=== PATIENT | female | born 1980 | race Caucasian/White ===

== ENCOUNTER 2016-05-05 09:28 | Emergency (ER) | payer MEDICAID ==
[2016-05-05] MEDS ORDERED: HYDROcod/ACETAM 5/325 MG TABLET PO STA (09:58)
[2016-05-05] MEDS ORDERED: HYDROcod/ACETAM 5/325 MG TABLET ONE (10:04)
[2016-05-05] MEDS ORDERED: KETOROLAC 60 MG/2 ML VIAL IM STA (10:47)
[2016-05-05] MEDS ORDERED: KETOROLAC 60 MG/2 ML VIAL ONE (10:50)
== END 2016-05-05 11:17 | disposition home or self-care (01) ==
DX: J06.9 Acute upper respiratory infection, unspecified (principal); B97.89 Other viral agents as the cause of diseases classified elsewhere; R51 Headache; Z77.22 Contact with and (suspected) exposure to environmental tobacco smoke (acute) (chronic)
CPT/HCPCS: 87275; 87276; 96372; 99283; 99284; A9270

== ENCOUNTER 2018-10-09 14:33 | Emergency (ER) | payer MEDICAID ==
--- NOTE | 2018-10-09 14:50 | ED Physician Documentation ---
History of Present Illness - Stated complaint Stated Complaint: R SIDE RIB PX - Chief complaint Chief Complaint: General - History obtained from History obtained from: Patient - Additonal information Additional information: Patient is a 38-year-old female presenting with several days of right mid axillary rib pain and pain with deep breathing without inciting incident, fall, or trauma. Patient denies other chest pain, productive cough, fever, or chills. Patient also denies any skin changes such as rash, erythema, or bruising to the area of discomfort. Patient has no abdominal complaints including pain, vomiting, urinary changes, or stool changes. Patient is not taking any hormones, nor has she had any recent travel. Patient is otherwise been in her normal state of health without complaint. Review of Systems Constitutional: denies: Fever Cardiac: denies: Chest pain / pressure Respiratory: reports: Dyspnea. 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 - Present Medications Home Medications: Ambulatory Orders Medication Instructions Recorded Confirmed oxyCODONE/ACET 5/325 [Percocet 5 1 - 2 tab PO Q4-6H PRN #10 tablet 05/05/16 mg/325 mg] - Allergies Allergies/Adverse Reactions: Allergies Allergy/AdvReac Type Severity Reaction Status Date / Time ibuprofen [From Motrin] Allergy Respiratory Verified 05/05/16 09:33 - Social History Does the pt smoke?: No Smoking Status: Never smoker PD ED PE NORMAL - Vitals Vital signs reviewed: Yes - General General: Alert and oriented X 3, No acute distress, Well developed/nourished - HEENT HEENT: Atraumatic, Moist mucous membranes - Cardiac Cardiac: RRR, No murmur, Other (Reproducible discomfort when palpating mid axillary ribs on the right side only) - Respiratory Respiratory: No respiratory distress, Clear bilaterally - Abdomen Abdomen: Soft, Non tender - Derm Derm: Normal color, Warm and dry, No rash - Extremities Extremities: No deformity, No tenderness to palpate - Neuro Neuro: Alert and oriented X 3, No motor deficit, No sensory deficit - Psych Psych: Normal mood, Normal affect Results - Vitals Vitals: Vital Signs - 24 hr 10/09/18 10/09/18 14:39 16:37 Temperature 37.0 C Heart Rate 82 80 Respiratory 16 14 Rate Blood Pressure 133/81 H 127/62 O2 Saturation 99 100 Oxygen O2 Source Room air - Labs Labs: Laboratory Tests 10/09/18 10/09/18 10/09/18 15:24 16:27 16:27 WBC 8.1 RBC 4.15 L Hgb 10.2 L Hct 34.8 L MCV 83.9 MCH 24.6 L MCHC 29.3 L RDW 16.4 H Plt Count 427 MPV 9.5 Neut # (Auto) 5.0 Lymph # (Auto) 2.4 Sierra # (Auto) 0.6 Eos # (Auto) 0.0 Baso # (Auto) 0.0 Absolute Nucleated RBC 0.00 Nucleated RBC % 0.0 PT 11.4 INR 1.0 APTT 25.9 D-Dimer > 1050.0 H Sodium Potassium Chloride Carbon Dioxide Anion Gap BUN Creatinine Estimated GFR (MDRD) Glucose Calcium Total Bilirubin AST ALT Alkaline Phosphatase Troponin I Total Protein Albumin Globulin Albumin/Globulin Ratio Lipase Serum HCG, Qual 10/09/18 10/09/18 10/09/18 16:27 16:27 16:27 WBC RBC Hgb Hct MCV MCH MCHC RDW Plt Count MPV Neut # (Auto) Lymph # (Auto) Sierra # (Auto) Eos # (Auto) Baso # (Auto) Absolute Nucleated RBC Nucleated RBC % PT INR APTT D-Dimer Sodium 137 Potassium 4.3 Chloride 106 Carbon Dioxide 21 Anion Gap 10.0 BUN 18 Creatinine 0.6 Estimated GFR (MDRD) 112 Glucose 90 Calcium 8.7 Total Bilirubin 0.7 AST 30 ALT 27 Alkaline Phosphatase 60 Troponin I < 0.04 Total Protein 7.2 Albumin 3.6 Globulin 3.6 Albumin/Globulin Ratio 1.0 Lipase 26 Serum HCG, Qual NEGATIVE PD MEDICAL DECISION MAKING - ED course Complexity details: reviewed results, re-evaluated patient, considered differential, d/w patient ED course: Most likely patient is experiencing musculoskeletal strain, but also considered rib contusion or fracture, although this would be highly unlikely given lack of trauma. Patient does describe pleuritic chest pain also raising concern for PE. Patient denies symptoms that raise high suspicion for ACS, IN, unstable angina, pneumonia, dissection, aneurysm, but considered. Will obtain chest x-ray to further evaluate. Also obtained d-dimer. D-dimer returned elevated. Chest x- ray also returned with questionable abnormalities on the ninth rib. Patient amenable to further evaluation with screening lab work, as well as CTA chest. Screening lab work including troponin returned relatively unremarkable. CTA chest did not find other acute pathology including PE, but incidental findings and report were shared with patient. At this time, feel that she is safe to discharge home with supportive cares, appropriate follow-up, strict return precautions. Patient voiced understanding and is comfortable with discharge plan. Departure - Departure Disposition: 01 Home, Self Care Clinical Impression: Chest wall pain Instructions: ED Strain Chest Wall Follow-Up: Amelia Hanson NP [Primary Care Provider] - Within 3 Days Comments: Please continue any home medications as previously instructed. Recommend heat, stretching, massage, and ibuprofen/Tylenol for chest wall or muscle pain. Please follow-up with primary care physician in next 2 to 3 days and return to ED sooner if experience worsening symptoms or other concerns.
--- NOTE | 2018-10-09 15:46 | XRAY Report ---
Reason: mid axillary rib pain, no injury Procedure Date: 10/09/2018 Accession Number: [id number] / [id number] Procedure: XR - Ribs w/PA Chest RT CPT Code: FULL RESULT: EXAM: RIGHT RIB RADIOGRAPHY EXAM DATE: 10/09/2018 03:26 PM. CLINICAL HISTORY: Mid axillary rib pain, no injury. COMPARISON: XR CHEST PA AND LAT 06/25/2010 10:48 PM. TECHNIQUE: 1 view of the chest and 2 views of the ribs. FINDINGS: Bones: While no displaced fracture is detected, there is apparent irregularity about the inferior margin of the posterior right ninth rib, best seen on the LPO view but questionably also present on the RPO view. Lungs: No focal opacities. No pneumothorax. No pleural effusions. Mediastinum: Heart and mediastinal contours are unremarkable. Other: None. IMPRESSION: Apparent irregularity about the inferior margin of the posterior right ninth rib. Recommendation: Chest CT. [facility]
[2018-10-09 16:37] LABS: BASOPHILS % (AUTO) 0.4 %; EOSINOPHILS % (AUTO) 0.2 %; HGB - HEMOGLOBIN 10.2 g/dL (12.0-16.0); LYMPHOCYTES # (AUTO) 2.4 10^3/uL (1.5-3.5); LYMPHOCYTES % (AUTO) 30.2 %; MEAN CORPUSCULAR HEMOGLOBIN 24.6 pg (27.0-31.0); MEAN CORPUSCULAR HGB CONC 29.3 g/dL (32.0-36.0); MEAN CORPUSCULAR VOLUME 83.9 fL (81.0-99.0); MEAN PLATELET VOLUME 9.5 fL (7.9-10.8); MONOCYTES # (AUTO) 0.6 10^3/uL (0.0-1.0); MONOCYTES % (AUTO) 7.5 %; NEUTROPHILS % (AUTO) 61.5 %; PLT - PLATELET COUNT 427 10^3/uL (130-450); RED BLOOD COUNT 4.15 10^6/uL (4.20-5.40); RED CELL DISTRIBUTION WIDTH 16.4 % (12.0-15.0); WHITE BLOOD COUNT 8.1 x10^3/uL (4.8-10.8)
[2018-10-09 16:38] VITALS: BP 127/62
[2018-10-09] MEDS ORDERED: IOVERSOL 320 100 ML VIAL IVP ONE ×2 (16:50→18:52)
[2018-10-09 16:57] LABS: ALBUMIN 3.6 g/dL (3.2-5.5); BILIRUBIN,TOTAL 0.7 mg/dL (0.2-1.0); CALCIUM 8.7 mg/dL (8.5-10.3); CREATININE 0.6 mg/dL (0.4-1.0); TOTAL PROTEIN 7.2 g/dL (6.7-8.2)
[2018-10-09 17:03] LABS: PT - PROTHROMBIN TIME 11.4 secs (9.9-12.6)
[2018-10-09 17:07] LABS: HCG,QUALITATIVE BLOOD NEGATIVE
[2018-10-09 17:11] LABS: PARTIAL THROMBOPLASTIN TIME 25.9 secs (24.9-33.3)
--- NOTE | 2018-10-09 17:21 | CT Report ---
Reason: elevated ddimer, right rib pain Procedure Date: 10/09/2018 Accession Number: [id number] / [id number] Procedure: CT - ANGIO CHEST W/WO CPT Code: FULL RESULT: EXAM: CT ANGIOGRAM CHEST EXAM DATE: 10/09/2018 04:52 PM. CLINICAL HISTORY: Elevated ddimer, right rib pain. COMPARISON: None. TECHNIQUE: Routine helical imaging was performed through the chest in the pulmonary arterial phase. IV Contrast: 80 cc Optiray 320. Reconstructions: Coronal 3-D MIP reconstructions.Sagittal and coronal. In accordance with CT protocol optimization, one or more of the following dose reduction techniques were utilized for this exam: automated exposure control, adjustment of mA and/or KV based on patient size, or use of iterative reconstructive technique. FINDINGS: Pulmonary Arteries: Diagnostic quality: Adequate through the segmental arteries. No evidence for acute or chronic pulmonary emboli. Lungs/Pleura: No suspicious nodularity, mass, or consolidation. No pleural effusions. No endobronchial or endotracheal lesion. Mediastinum: 1.9 cm partially calcified nodule in the left thyroid lobe. Thoracic aorta and main pulmonary artery are normal caliber. Heart size is within normal limits. No pericardial effusion. Lymph Nodes: No mediastinal, hilar, or axillary adenopathy. Bones: No suspicious osseous lesions. Visualized chest wall is grossly unremarkable. Partially Imaged Upper Abdomen: No acute abnormalities. IMPRESSION: No acute or chronic pulmonary embolus. 1.9 cm left thyroid lobe nodule. This could be further evaluated with nonemergent ultrasound. [facility]
== END 2018-10-09 17:33 | disposition home or self-care (01) ==
LOC: ED 14:33
DX: R07.89 Other chest pain (principal); R79.89 Other specified abnormal findings of blood chemistry; E04.1 Nontoxic single thyroid nodule
CPT/HCPCS: 36415; 71101; 71275; 80053; 83690; 84484; 84703; 85025; 85379; 85610; 85730; 99283; Q9967

== ENCOUNTER 2018-11-28 12:30 | Emergency (ER) | payer MEDICAID ==
[2018-11-28 12:41] VITALS: BP 154/78
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
== END 2018-11-28 13:01 | disposition home or self-care (01) ==
LOC: ED 12:30
DX: S60.470A Other superficial bite of right index finger, initial encounter (principal); W54.0XXA Bitten by dog, initial encounter; Y93.89 Activity, other specified; Y92.481 Parking lot as the place of occurrence of the external cause
CPT/HCPCS: 99282; 99284

== ENCOUNTER 2019-03-31 22:12 | Emergency (ER) | payer OTHER, MEDICAID ==
[2019-03-31 22:24] VITALS: BP 138/69
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
== END 2019-03-31 22:57 | disposition home or self-care (01) ==
LOC: ED 22:12
DX: S97.81XA Crushing injury of right foot, initial encounter (principal); V03.00XA Pedestrian on foot injured in collision with car, pick-up truck or van in nontraffic accident, initial encounter; Y92.524 Gas station as the place of occurrence of the external cause; Y99.0 Civilian activity done for income or pay
CPT/HCPCS: 99282; 99283

== ENCOUNTER 2019-04-07 22:34 | Emergency (ER) | payer OTHER, MEDICAID ==
[2019-04-07 22:44] VITALS: BP 144/86
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
== END 2019-04-07 23:46 | disposition home or self-care (01) ==
LOC: ED 22:34
DX: S92.315A Nondisplaced fracture of first metatarsal bone, left foot, initial encounter for closed fracture (principal); S97.82XA Crushing injury of left foot, initial encounter; V03.00XA Pedestrian on foot injured in collision with car, pick-up truck or van in nontraffic accident, initial encounter
CPT/HCPCS: 99282; 99283

== ENCOUNTER 2020-03-29 18:03 | Emergency (ER) | payer MEDICAID, OTHER ==
[2020-03-29] MEDS ORDERED: METOCLOPRAMIDE 10 MG/2 ML VIAL IVP STA (18:34)
--- NOTE | 2020-03-29 18:36 | ED Physician Documentation ---
PD HPI FOCAL NEURO - Stated complaint Stated Complaint: RIGHT SIDE NECK PX, BLURRY VISION, RIGHT SIDE HEAD - Chief complaint Chief Complaint: Neuro - History obtained from History obtained from: Patient - Additional information Additional information: 39-year-old woman with remote history of methamphetamine use, not recent. Otherwise no history of neurologic disease although she does get occasional migraines which are more typical. 2 days ago she felt like bubbles were going up the side of her neck toward the mastoid and then they popped. Since then she has had an occipital headache, blurry vision in the right eye, the right forehead feels numb and the left forehead is burning. 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 - Present Medications Home Medications: Ambulatory Orders Medication Instructions Recorded Confirmed Fluoxetine HCl [Prozac] 40 mg PO DAILY 03/31/19 03/29/20 busPIRone [Buspar] 5 mg PO TID PRN 03/31/19 03/29/20 Levothyroxine Sodium [Synthroid] 1 tab PO DAILY 03/29/20 03/29/20 - Allergies Allergies/Adverse Reactions: Allergies Allergy/AdvReac Type Severity Reaction Status Date / Time ibuprofen [From Motrin] Allergy Respiratory Verified 03/29/20 18:16 - Social History Does the pt smoke?: No Smoking Status: Never smoker Does the pt drink ETOH?: No Does the pt have substance abuse?: No - Immunizations Immunizations are current?: Yes - POLST Patient has POLST: No PD ED PE NORMAL - Vitals Vital signs reviewed: Yes - General General: Alert and oriented X 3, No acute distress - HEENT HEENT: PERRL, EOMI - Neck Neck: Supple, no meningeal sign, No bony TTP - Cardiac Cardiac: RRR, No murmur - Respiratory Respiratory: No respiratory distress, Clear bilaterally - Abdomen Abdomen: Soft, Non tender - Back Back: No CVA TTP, No spinal TTP - Derm Derm: Normal color, Warm and dry - Extremities Extremities: No edema, No calf tenderness / cord - Neuro Neuro: Alert and oriented X 3, No motor deficit, No sensory deficit, Normal speech NIHSS - Time Time: 18:28 - Level of Consciousness Level of consciousness: (0) Alert, Keenly responsive LOC Questions: (0) Answers both Q's correct LOC Commands: (0) Performs both correctly - Gaze Best Gaze: (0) Normal - Visual Visual: (0) No loss - Facial Palsy Facial Palsy: (0) Normal, symmetrical movement - Motor Arms (both separate) Motor Arm (right): (0) No drift Motor Arm (left): (0) No drift - Motor Legs (both separate) Motor Leg (right): (0) No drift Motor Leg (left): (0) No drift - Limb Ataxia Limb Ataxia: (0) Absent - Sensory Sensory: (0) Normal - Best Language Best Language: (0) No aphasia - Dysarthria Dysarthria: (0) Normal - Extinction and Inattention (formally neg Extinction and inattention: (0) No abnormality - Total Score/Results Total Score/Result: 0 Results - Vitals Vitals: Vital Signs - 24 hr 03/29/20 03/29/20 03/29/20 18:11 18:49 19:00 Temperature 36.2 C L Heart Rate 82 87 88 Respiratory 18 16 14 Rate Blood Pressure 127/82 H 138/91 H 131/83 H O2 Saturation 99 100 98 Oxygen O2 Source Room air - EKG (time done) 1836 Rate: Rate (enter#) (69) Rhythm: NSR [place]: Normal Intervals: Normal OR QRS: Normal Ischemia: Normal ST segments Computer interpretation: Agree with computer - Labs Labs: Laboratory Tests 03/29/20 03/29/20 03/29/20 17:40 17:40 18:45 WBC 7.3 RBC 4.71 Hgb 12.1 Hct 38.6 MCV 82.0 MCH 25.7 L MCHC 31.3 L RDW 16.1 H Plt Count 478 H MPV 10.1 Neut # (Auto) 4.6 Lymph # (Auto) 2.1 [place] # (Auto) 0.6 Eos # (Auto) 0.0 Baso # (Auto) 0.0 Absolute Nucleated RBC 0.00 Nucleated RBC % 0.0 Sodium 138 Potassium 4.3 Chloride 104 Carbon Dioxide 25 Anion Gap 9.0 BUN 20 Creatinine 0.7 Estimated GFR (MDRD) 93 Glucose 106 H Calcium 9.4 Total Bilirubin 0.6 AST 25 ALT 29 Alkaline Phosphatase 59 Total Protein 7.4 Albumin 4.0 Globulin 3.4 Albumin/Globulin Ratio 1.2 Lipase 27 Urine Color YELLOW Urine Clarity CLEAR Urine pH 7.0 Ur Specific Claude 1.025 Urine Protein NEGATIVE Urine Glucose (UA) NEGATIVE Urine Ketones NEGATIVE Urine Occult Blood TRACE-INTA Urine Nitrite NEGATIVE Urine Bilirubin NEGATIVE Urine Urobilinogen 0.2 (NORMAL) Ur Leukocyte Esterase NEGATIVE Ur Microscopic Review NOT INDICATED Urine Culture Comments NOT INDICATED Urine HCG, Qual NEGATIVE Urine Opiates Screen NEGATIVE Ur Oxycodone Screen NEGATIVE Urine Methadone Screen NEGATIVE Ur Propoxyphene Screen NEGATIVE Ur Barbiturates Screen NEGATIVE Ur Tricyclics Screen NEGATIVE Ur Phencyclidine Scrn NEGATIVE Ur Amphetamine Screen NEGATIVE U Methamphetamines Scrn NEGATIVE U Benzodiazepines Scrn NEGATIVE Urine Cocaine Screen NEGATIVE U Cannabinoids Screen NEGATIVE - Rads (name of study) CTA Head and neck Radiology: EMP read contemporaneously (NAD) PD MEDICAL DECISION MAKING - ED course ED course: 39-year-old woman presents with odd symptoms of bubbling in her right posterior neck culminating in a posterior headache, blurry vision in 1 eye, numbness on one side of the forehead and burning on the other one possibility would be vertebral dissection, another would be a very odd stroke, finally and frankly most likely my mind would be migraine. During her ED stay she received some IV Reglan which resolved her neurologic symptoms. Subsequently had CT angiography of the neck which ruled out dissection or vascular issue. Departure - Departure Disposition: 01 Home, Self Care Clinical Impression: Stroke-like symptoms Migraine Qualifiers: Migraine type: with aura Status migrainosus presence: without status sandhya rainosus Intractability: not intractable Qualified Code(s): G43.109 - Migraine with aura, not intractable, without status migrainosus Condition: Good Record reviewed to determine appropriate education?: Yes Instructions: ED Headache Migraine Comments: You were seen today with some strokelike symptoms although it was not typical for stroke since it was on both sides. The fact that you got relief with's migraine medication and your pictures were unremarkable suggest that it was actually an atypical migraine. Return if worsening. Follow-up with your primary care physician.
[2020-03-29] MEDS ORDERED: IOVERSOL 320 100 ML VIAL IVP ONE ×2 (18:46→19:43)
[2020-03-29 18:57] LABS: BILIRUBIN,URINE NEGATIVE (NEGATIVE); GLUCOSE, URINE (UA) NEGATIVE (NEGATIVE); KETONES,URINE (UA) NEGATIVE (NEGATIVE); LEUKOCYTE ESTERASE, URINE NEGATIVE (NEGATIVE); MUDS CUTOFF CONCENTRATIONS CUTOFF CONC BELOW:; NITRITE,URINE NEGATIVE (NEGATIVE); OCCULT BLOOD,URINE TRACE-INTA (NEGATIVE); PROTEIN,URINE NEGATIVE (NEGATIVE); UROBILINOGEN,URINE 0.2 (NORMAL) E.U./dL (NORMAL)
[2020-03-29 19:01] LABS: CLARITY,URINE CLEAR (CLEAR); HCG UR QUAL NEGATIVE
[2020-03-29 19:02] LABS: BASOPHILS % (AUTO) 0.4 %; EOSINOPHILS % (AUTO) 0.3 %; HGB - HEMOGLOBIN 12.1 g/dL (12.0-16.0); LYMPHOCYTES # (AUTO) 2.1 10^3/uL (1.5-3.5); LYMPHOCYTES % (AUTO) 28.2 %; MEAN CORPUSCULAR HEMOGLOBIN 25.7 pg (27.0-31.0); MEAN CORPUSCULAR HGB CONC 31.3 g/dL (32.0-36.0); MEAN PLATELET VOLUME 10.1 fL (7.9-10.8); MONOCYTES # (AUTO) 0.6 10^3/uL (0.0-1.0); MONOCYTES % (AUTO) 7.9 %; NEUTROPHILS # (AUTO) 4.6 10^3/uL (1.5-6.6); NEUTROPHILS % (AUTO) 63.1 %; PLT - PLATELET COUNT 478 10^3/uL (130-450); RED BLOOD COUNT 4.71 10^6/uL (4.20-5.40); RED CELL DISTRIBUTION WIDTH 16.1 % (12.0-15.0); WHITE BLOOD COUNT 7.3 x10^3/uL (4.8-10.8)
[2020-03-29 19:09] LABS: AMPHETAMINE SCREEN,URINE NEGATIVE (NEGATIVE); BENZODIAZEPINES SCREEN, URINE NEGATIVE (NEGATIVE); COCAINE SCREEN URINE NEGATIVE (NEGATIVE); METHADONE SCREEN, URINE NEGATIVE (NEGATIVE); METHAMPHETAMINES SCREEN, URINE NEGATIVE (NEGATIVE); OPIATE SCREEN, URINE NEGATIVE (NEGATIVE); OXYCODONE SCREEN, URINE NEGATIVE (NEGATIVE); PROPOXYPHENE SCREEN, URINE NEGATIVE (NEGATIVE); TRICYCLIC ANTIDEPRESSANT,URINE NEGATIVE (NEGATIVE)
[2020-03-29 19:15] LABS: ALBUMIN/GLOBULIN RATIO 1.2 (1.0-2.2); BILIRUBIN,TOTAL 0.6 mg/dL (0.2-1.0); CALCIUM 9.4 mg/dL (8.5-10.3); CREATININE 0.7 mg/dL (0.4-1.0); TOTAL PROTEIN 7.4 g/dL (6.7-8.2)
--- NOTE | 2020-03-29 20:10 | CT Report ---
PROCEDURE: ANGIO HEAD W/WO INDICATIONS: R neck pain, blurry vision, occipital HARRIS CONTRAST: IV CONTRAST: Optiray 320 ml: 80 PO CONTRAST: *NO PO CONTRAST TECHNIQUE: Precontrast 4.5 mm thick angled axial sections acquired from the foramen magnum to the vertex. Afte r the administration of intravenous contrast, 1 mm thick sections acquired through the [place] of [place] is. Postcontrast 4.5 mm thick sections then re-acquired from the foramen magnum to the vertex. 3-di mensional kjzfces-jzcscfpsp-zbjbylvnlc (MIP) and/or volume rendering reformats were acquired of the c entral intracranial vasculature. For radiation dose reduction, the following was used: automated ex posure control, adjustment of mA and/or kV according to patient size. COMPARISON: None available FINDINGS: Image quality: Excellent. Anterior circulation: Intracranial internal carotid arteries are normal in size and flow. The flow within the paired anterior cerebral arteries is normal and symmetric. The flow within the middle cer ebral arteries is normal and symmetric. The anterior communicating artery is seen. No aneurysms are seen. Posterior circulation: Visualized portions of the vertebral arteries demonstrate normal caliber, and join to form a normal appearing basilar artery. Flow within the posterior cerebral arteries is norm al and symmetric. No aneurysms are seen. CSF spaces: Ventricles are normal in size and shape. Basal cisterns are patent. No extra-axial flu id collections. Brain: No midline shift. No intracranial bleeds or masses. Ramirez-white matter interface appears int act. Skull and face: Calvarium and facial bones appear intact, without suspicious lesions. Sinuses: Visualized sinuses and mastoids are clear. IMPRESSION: 1. No CT evidence of acute intracranial process. 2. Normal CT angiogram of the head without evidence of vascular stenosis, occlusion, or aneurysm. Reviewed by: Shanice Pan MD on 03/29/2020 8:08 PM PST Approved by: Shanice Pan MD on 03/29/2020 8:08 PM PST Station ID: [id number]
--- NOTE | 2020-03-29 20:33 | CT Report ---
PROCEDURE: ANGIO NECK W INDICATIONS: R neck pain, blurry vision, occipital HARRIS CONTRAST: IV CONTRAST: Optiray 320 ml: 80 PO CONTRAST: *NO PO CONTRAST TECHNIQUE: After the administration of intravenous contrast, 1.5 mm axial sections acquired from the aortic arch to the [place] of [place]. Coronal 3-D maximum intensity projection (MIP) and/or volume rendering ref ormats were then performed. For radiation dose reduction, the following was used: automated exposur e control, adjustment of mA and/or kV according to patient size. COMPARISON: None. FINDINGS: Image quality: Excellent. Carotid system: The great vessels demonstrate a conventional anatomy as they arise from the aortic a rch. The origins of the common carotid arteries appear patent. The common carotid arteries demonstr ate normal calibers and courses. The bifurcation regions appear normal bilaterally. The internal ca rotid arteries demonstrate normal caliber and course. Posterior circulation: The origins of the vertebral arteries appear patent. The more superior porti ons of the vertebral arteries demonstrate normal course and caliber. They join to form a normal appe aring basilar artery. Soft tissues: Visualized neck soft tissues demonstrate no suspicious abnormalities. The thyroid gla nd is normal in size. Bones: No suspicious bony lesions. Visualized cervical spine appears normally aligned. IMPRESSION: No evidence of carotid or vertebral stenosis, occlusion or dissection. The estimate of stenosis included in the report of the imaging study was calculated using the NASCET method Reviewed by: Shanice Pan MD on 03/29/2020 8:32 PM PST Approved by: Shanice Pan MD on 03/29/2020 8:32 PM PST Station ID: [id number]
[2020-03-29 20:50] VITALS: BP 148/90
== END 2020-03-29 20:53 | disposition home or self-care (01) ==
LOC: ED 18:03
DX: G43.109 Migraine with aura, not intractable, without status migrainosus (principal); H53.8 Other visual disturbances; R20.0 Anesthesia of skin; R20.2 Paresthesia of skin
CPT/HCPCS: 36415; 70496; 70498; 80053; 80306; 81003; 81025; 83690; 85025; 93005; 96374; 99284; J2765; Q9967; 81001; 87086

== ENCOUNTER 2020-11-05 19:37 | Emergency (ER) | payer MEDICAID ==
[2020-11-05] MEDS ORDERED: TETANUS/DIPHTHERIA/PERTUSSIS 0.5 ML SYRINGE IM ONE (21:03)
[2020-11-05] MEDS ORDERED: AMOX/CLAV 875 MG/125 MG TABLET PO STA (21:03)
--- NOTE | 2020-11-05 21:05 | ED Physician Documentation ---
History of Present Illness - Stated complaint Stated Complaint: DOG BITE - Chief complaint Chief Complaint: Laceration - History obtained from History obtained from: Patient - History of Present Illness Timing: Prior to arrival, Today - Additonal information Additional information: 40-year-old female was walking her dog in [place] when she noted a stray dog she went to bend over to pet the dog and it jumped up and bit her in the face and ran away. She states the dog was a pit bull that appeared to have recently littered pops. The patient does not know the animal the belting and webbing inspector was not present. Animal control has been notified. The patient is uncertain about her last tetanus. She has been immunized against Covid. 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 - Present Medications Home Medications: Ambulatory Orders Medication Instructions Recorded Confirmed Fluoxetine HCl [Prozac] 40 mg PO DAILY 03/31/19 03/29/20 busPIRone [Buspar] 5 mg PO TID PRN 03/31/19 03/29/20 Levothyroxine Sodium [Synthroid] 1 tab PO DAILY 03/29/20 03/29/20 Amox/Clav 875/125 [Augmentin] 1 each PO Q12H #10 tablet 11/05/20 Fluconazole [Diflucan] 1 tablet PO ONCE 1 Days #1 tablet 11/05/20 - Allergies Allergies/Adverse Reactions: Allergies Allergy/AdvReac Type Severity Reaction Status Date / Time ibuprofen [From Motrin] Allergy Respiratory Verified 11/05/20 19:51 - Social History Does the pt smoke?: No Smoking Status: Never smoker Does the pt drink ETOH?: No Does the pt have substance abuse?: No - Immunizations Immunizations are current?: Yes - POLST Patient has POLST: No PD ED PE NORMAL - Vitals Vital signs reviewed: Yes (hypertensive ) - General General: Alert and oriented X 3, No acute distress, Well developed/nourished - HEENT HEENT: PERRL, EOMI, Other (There are superficial lacerations not penetrating the dermis to the right cheek 1 cm to the right nares 1 cm into the left nares more superficial half centimeter.) - Neck Neck: Supple, no meningeal sign, No bony TTP - Respiratory Respiratory: No respiratory distress - Derm Derm: Normal color, Warm and dry, No rash - Extremities Extremities: No deformity, No edema - Neuro Neuro: Alert and oriented X 3, clamp jig assembler 2-12 intact, No motor deficit, No sensory deficit, Normal speech Eye Opening: Spontaneous Motor: Obeys Commands Verbal: Oriented GCS Score: 15 - Psych Psych: Normal mood, Normal affect Results - Vitals Vitals: Vital Signs - 24 hr 11/05/20 19:48 Temperature 36.9 C Heart Rate 75 Respiratory 16 Rate Blood Pressure 156/86 H O2 Saturation 100 Oxygen O2 Source Room air PD MEDICAL DECISION MAKING - ED course Complexity details: considered differential, d/w patient ED course: 40-year-old female with dog bite to the face from a stray dog has superficial lacerations which are cleansed bacitracin is applied and patient is given a tetanus booster. We will place on antibiotic prophylaxis and she is requesting Diflucan as well. I have given the patient instructions on what to expect from a small amount of redness and serous drainage by day 3 versus infection with surrounding erythema. She will return as needed.She will be responsible for follow-up with animal control. Departure - Departure Disposition: 01 Home, Self Care Clinical Impression: Superficial laceration of face Dog bite of ala nasi Qualifiers: Encounter type: initial encounter Qualified Code(s): S01.25XA - Open bite of nose, initial encounter; W54.0XXA - Bitten by dog, initial encounter Condition: Stable Instructions: ED Laceration Small Superf No Sutr, ED Bite Dog Follow-Up: Amelia Hanson NP [Primary Care Provider] - Prescriptions: Amox/Clav 875/125 [Augmentin] 1 each PO Q12H #10 tablet Fluconazole [Diflucan] 1 tablet PO ONCE 1 Days #1 tablet
[2020-11-05] MEDS ORDERED: BACITRACIN ZINC OINT 1 PACKET TOP STA (21:13)
[2020-11-05 21:20] VITALS: BP 150/78
== END 2020-11-05 21:20 | disposition home or self-care (01) ==
LOC: ED 19:37
DX: S01.25XA Open bite of nose, initial encounter (principal); S00.87XA Other superficial bite of other part of head, initial encounter; W54.0XXA Bitten by dog, initial encounter; Y93.K1 Activity, walking an animal; Y92.89 Other specified places as the place of occurrence of the external cause; Z23 Encounter for immunization
CPT/HCPCS: 90471; 90715; 99283; A9270

== ENCOUNTER 2020-11-28 22:50 | Emergency (ER) | payer MEDICAID ==
--- NOTE | 2020-11-29 00:17 | ED Physician Documentation ---
PD HPI CHEST PAIN - Stated complaint Stated Complaint: R SIDE PX - Chief complaint Chief Complaint: General - History obtained from History obtained from: Patient - History of Present Illness Timing - onset: How many days ago (3) Timing - details: Gradual onset, Waxing and waning Pain level now: 6 Quality: Pain Location: Right chest, Other (right flank) Radiation: Other ( no radiation) Improved by: Rest Worsened by: Inspiration, Movement Associated symptoms: No: Shortness of air, Vomiting Similar symptoms before: Has not had sx before Review of Systems Constitutional: reports: Reviewed and negative Cardiac: reports: Chest pain / pressure. 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, 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 - Present Medications Home Medications: Ambulatory Orders Medication Instructions Recorded Confirmed Fluoxetine HCl [Prozac] 40 mg PO DAILY 03/31/19 03/29/20 busPIRone [Buspar] 5 mg PO TID PRN 03/31/19 03/29/20 Levothyroxine Sodium [Synthroid] 1 tab PO DAILY 03/29/20 03/29/20 Amox/Clav 875/125 [Augmentin] 1 each PO Q12H #10 tablet 11/05/20 Fluconazole [Diflucan] 1 tablet PO ONCE 1 Days #1 tablet 11/05/20 HYDROcod/ACETAM 5/325 [Ennice 5/325] 1 - 2 tablet PO Q6H PRN #14 tablet 11/29/20 - Allergies Allergies/Adverse Reactions: Allergies Allergy/AdvReac Type Severity Reaction Status Date / Time ibuprofen [From Motrin] Allergy Respiratory Verified 11/28/20 23:00 - Social History Does the pt smoke?: No Smoking Status: Never smoker Does the pt drink ETOH?: No Does the pt have substance abuse?: No - Immunizations Immunizations are current?: Yes - POLST Patient has POLST: No PD ED PE NORMAL - Vitals Vital signs reviewed: Yes - General General: Alert and oriented X 3, No acute distress, Well developed/nourished - HEENT HEENT: Moist mucous membranes - Neck Neck: Supple, no meningeal sign - Cardiac Cardiac: RRR, No murmur, No gallop, No rub - Respiratory Respiratory: No respiratory distress, Clear bilaterally - Abdomen Abdomen: Normal bowel sounds, Soft, Non tender - Derm Derm: Normal color, Warm and dry - Extremities Extremities: No edema Results - Vitals Vitals: Oxygen O2 Source Room air - Rads (name of study) chest xray Radiology: Prelim report reviewed, See rad report PD MEDICAL DECISION MAKING - ED course Complexity details: reviewed results, re-evaluated patient, considered differential, d/w patient ED course: chest wall pain distinctly worse with movement, palpation. Emergent testing not indicated at this time, encouraged to follow up with primary care provider, return if worse. I am prescribing a short course of short-acting opioid pain medication for this patient. I have reviewed the patients MEDIA CLERK and no concerning findings were noted. I have discussed that the opioids are for short term therapy only, and will not be refilled from the ED. Departure - Departure Disposition: Home, Self Care Clinical Impression: Chest wall pain Condition: Good Instructions: ED Strain Chest Wall Follow-Up: Amelia Hanson NP [Primary Care Provider] - Prescriptions: HYDROcod/ACETAM 5/325 [Ennice 5/325] 1 - 2 tablet PO Q6H PRN #14 tablet PRN Reason: Pain Comments: I am prescribing a short course of narcotic pain medication for you. These are potentially dangerous and addictive medications that should be used carefully. These medications may constipate you. Take an iqie-yhk-dmmttxm stool softener (docusate) twice daily with plenty of water while taking these medications. If you go 24 hours without a bowel movement, take qncc-alw-ouqdrqu miralax, per package instructions. Do not drink or drive while taking these medications. If you received narcotic or sedating medications while in the emergency department, do not drive for 24 hours. Store this medication in a safe, secure place and out of reach of children. It is a violation of federal law to give or sell this medication to another person or to use in a manner other than prescribed. The ED will not refill narcotic prescriptions, including prescriptions lost or stolen. To dispose of unwanted medications: 1. [facility] at [address] in [place] has a medication drop box. They accept prescription medications (in pill form) Sunday through Sunday 9:00 a.m. to 5:00 p.m. 2. The [facility] accepts prescription medications (in pill form only) for disposal year round. Call for more information. 3. Contact the [facility] for the next [facility] sponsored prescription drug collection event. , [phone], or [phone]; Forms: Activity restrictions Discharge Date/Time: 11/29/20 01:55
[2020-11-29] MEDS ORDERED: KETOROLAC 60 MG/2 ML VIAL IM STA (00:29)
--- NOTE | 2020-11-29 01:19 | XRAY Report ---
PROCEDURE: Chest 2 View X-Ray INDICATIONS: pleuritic right chest pain TECHNIQUE: 2 view(s) of the chest. COMPARISON: CTA chest 6 is .. FINDINGS: Surgical changes and devices: None. Lungs and pleura: No pleural effusions or pneumothorax. Lungs are clear. Mediastinum: Mediastinal contours are normal. Heart size is normal. Bones and chest wall: No suspicious bony abnormalities. Soft tissues appear unremarkable. IMPRESSION: No acute cardiopulmonary disease process. Reviewed by: Milagros Her MD, PhD on 11/29/2020 1:18 AM PDT Approved by: Milagros Her MD, PhD on 11/29/2020 1:18 AM PDT Station ID: [id number]
[2020-11-29 01:23] VITALS: BP 125/67
[2020-11-29] MEDS ORDERED: HYDROcod/ACETAM 5/325 MG TABLET PO STA (01:44)
== END 2020-11-29 01:55 | disposition home or self-care (01) ==
LOC: ED 22:50
DX: R07.89 Other chest pain (principal)
CPT/HCPCS: 71046; 96372; 99283; 99284; A9270

== ENCOUNTER 2023-05-13 16:24 | Emergency (ER) | payer MEDICAID ==
[2023-05-13] MEDS ORDERED: KETOROLAC 60 MG/2 ML VIAL IM STA (17:35)
--- NOTE | 2023-05-13 17:35 | ED Physician Documentation ---
PD HPI ABD PAIN - Stated complaint Stated Complaint: ABD PX - Chief complaint Chief Complaint: Abd Pain - History obtained from History obtained from: Patient - Additional information Additional information: 42-year-old woman fell bilateral flank pain today. This is consistent for her with prior episodes of "scarred kidneys. She is not feverish with it. No urinary complaints. No possibility of . She requests Toradol specifically for this. 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: section, 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 - Present Medications Home Medications: Ambulatory Orders Medication Instructions Recorded Confirmed Fluoxetine HCl [Prozac] 40 mg PO DAILY 03/31/19 03/29/20 busPIRone [Buspar] 5 mg PO TID PRN 03/31/19 03/29/20 Levothyroxine Sodium [Synthroid] 1 tab PO DAILY 03/29/20 03/29/20 Amox/Clav 875/125 [Augmentin] 1 each PO Q12H #10 tablet 11/05/20 Fluconazole [Diflucan] 1 tablet PO ONCE 1 Days #1 tablet 11/05/20 HYDROcod/ACETAM 5/325 [Printer 5/325] 1 - 2 tablet PO Q6H PRN #14 tablet 11/29/20 Ciprofloxacin HCl [Cipro] 500 mg PO BID #20 tablet 05/13/23 Ferrous Sulfate 325 mg PO DAILY #60 05/13/23 - Allergies Allergies/Adverse Reactions: Allergies Allergy/AdvReac Type Severity Reaction Status Date / Time ibuprofen [From Motrin] Allergy Respiratory Verified 05/13/23 17:23 - Social History Does the pt smoke?: No Smoking Status: Never smoker Does the pt drink ETOH?: No Does the pt have substance abuse?: No - Immunizations Immunizations are current?: Yes - POLST Patient has POLST: No PD ED PE NORMAL - Vitals Vital signs reviewed: Yes - General General: Alert and oriented X 3, No acute distress - Abdomen Abdomen: Normal bowel sounds, Soft, Non tender - Back Back: Other (Mild bilateral flank tenderness) - Derm Derm: Normal color, Warm and dry - Neuro Neuro: Alert and oriented X 3 Results - Vitals Vitals: Vital Signs - 24 hr 05/13/23 16:26 Temperature 37.7 C Heart Rate 126 H Respiratory 18 Rate Blood Pressure 168/74 H O2 Saturation 98 Oxygen O2 Source Room air - Labs Labs: Laboratory Tests 05/13/23 05/13/23 05/13/23 17:23 17:41 17:41 WBC 17.5 H RBC 4.06 L Hgb 8.7 L Hct 29.7 L MCV 73.2 L MCH 21.4 L MCHC 29.3 L RDW 17.0 H Plt Count 583 H MPV 8.3 Neut # (Auto) 15.2 H Lymph # (Auto) 1.0 L [place] # (Auto) 1.1 H Eos # (Auto) 0.0 Baso # (Auto) 0.0 Absolute Nucleated RBC 0.00 Nucleated RBC % 0.0 Sodium 132 L Potassium 3.7 Chloride 98 L Carbon Dioxide 25 Anion Gap 9.0 BUN 16 Creatinine 0.6 Estimated GFR (MDRD) 110 Glucose 100 Calcium 8.4 L Total Bilirubin 0.6 AST 21 ALT 21 Alkaline Phosphatase 72 Total Protein 6.9 Albumin 3.6 Globulin 3.3 Albumin/Globulin Ratio 1.1 Urine Color YELLOW Urine Clarity CLOUDY Urine pH 7.5 Ur Specific [place] 1.020 Urine Protein NEGATIVE Urine Glucose (UA) NEGATIVE Urine Ketones NEGATIVE Urine Occult Blood NEGATIVE Urine Nitrite POSITIVE H Urine Bilirubin NEGATIVE Urine Urobilinogen 0.2 (NORMAL) Ur Leukocyte Esterase NEGATIVE Urine RBC 0-5 Urine WBC 6-10 H Ur Squamous Epith Cells FEW Squamous Urine Bacteria Many H Ur Microscopic Review INDICATED Urine Culture Comments INDICATED Urine HCG, Qual NEGATIVE PD Medical Decision Making - ED course ED course: 42-year-old woman with bilateral flank pain. She is found to have a high normal temperature, elevated white count with significant anemia, and pyuria. Will treat with antibiotics, discussed the anemia with her, she has been anemic in the past but this looks worse than usual. She does have a history of heavy menses and recommended [facility] follow-up for consideration of something like an endometrial ablation. Departure - Departure Disposition: Home, Self Care Clinical Impression: Pyelonephritis Anemia Qualifiers: Anemia type: iron deficiency Iron deficiency anemia type: chronic blood loss Qualified Code(s): D50.0 - Iron deficiency anemia secondary to blood loss (chronic) Condition: Good Record reviewed to determine appropriate education?: Yes Instructions: Pyelonephritis Dc Follow-Up: [facility] [Provider Group] Prescriptions: Ciprofloxacin HCl [Cipro] 500 mg PO BID #20 tablet Ferrous Sulfate 325 mg PO DAILY #60 Comments: You have a kidney infection, we will culture your urine and if a change in antibiotics is necessary we will call you but return if worse or if not improving over the next few days. You are also quite anemic. I am starting an iron supplement it is reasonable for you to follow-up with the [facility] clinic for consideration for something like an endometrial ablation/Esure procedure. Forms: PCP List
[2023-05-13 17:41] LABS: BILIRUBIN,URINE NEGATIVE (NEGATIVE); GLUCOSE, URINE (UA) NEGATIVE (NEGATIVE); KETONES,URINE (UA) NEGATIVE (NEGATIVE); LEUKOCYTE ESTERASE, URINE NEGATIVE (NEGATIVE); NITRITE,URINE POSITIVE (NEGATIVE); OCCULT BLOOD,URINE NEGATIVE (NEGATIVE); PH,URINE 7.5 PH (5.0-7.5); PROTEIN,URINE NEGATIVE (NEGATIVE); UROBILINOGEN,URINE 0.2 (NORMAL) E.U./dL (NORMAL)
[2023-05-13 17:46] LABS: BASOPHILS % (AUTO) 0.2 %; HCT - HEMATOCRIT 29.7 % (37.0-47.0); HGB - HEMOGLOBIN 8.7 g/dL (12.0-16.0); LYMPHOCYTES % (AUTO) 5.9 %; MEAN CORPUSCULAR HEMOGLOBIN 21.4 pg (27.0-31.0); MEAN CORPUSCULAR HGB CONC 29.3 g/dL (32.0-36.0); MEAN CORPUSCULAR VOLUME 73.2 fL (81.0-99.0); MEAN PLATELET VOLUME 8.3 fL (7.9-10.8); MONOCYTES # (AUTO) 1.1 10^3/uL (0.0-1.0); MONOCYTES % (AUTO) 6.5 %; NEUTROPHILS # (AUTO) 15.2 10^3/uL (1.5-6.6); NEUTROPHILS % (AUTO) 86.9 %; PLT - PLATELET COUNT 583 10^3/uL (130-450); RED BLOOD COUNT 4.06 10^6/uL (4.20-5.40); WHITE BLOOD COUNT 17.5 x10^3/uL (4.8-10.8)
[2023-05-13 17:56] LABS: CLARITY,URINE CLOUDY (CLEAR); HCG UR QUAL NEGATIVE
[2023-05-13 17:57] LABS: BACTERIA,URINE Many /HPF (None Seen); RBC,URINE 0-5 /HPF (0-5); SQUAMOUS EPITHELIAL CELL,UR FEW Squamous (<= Few)
[2023-05-13 17:59] LABS: ALBUMIN 3.6 g/dL (3.2-5.5); ALBUMIN/GLOBULIN RATIO 1.1 (1.0-2.2); BILIRUBIN,TOTAL 0.6 mg/dL (0.2-1.0); CALCIUM 8.4 mg/dL (8.5-10.3); CREATININE 0.6 mg/dL (0.6-1.3); POTASSIUM 3.7 mmol/L (3.5-4.5); TOTAL PROTEIN 6.9 g/dL (6.4-8.9)
[2023-05-13] MEDS ORDERED: CIPROFLOXACIN 250 MG TABLET PO STA (18:23)
[2023-05-13 18:58] VITALS: BP 127/65; O2SAT 97
== END 2023-05-13 19:06 | disposition home or self-care (01) ==
LOC: ED 16:24
DX: N12 Tubulo-interstitial nephritis, not specified as acute or chronic (principal); D50.0 Iron deficiency anemia secondary to blood loss (chronic); Z79.899 Other long term (current) drug therapy
CPT/HCPCS: 36415; 80053; 81001; 81025; 85025; 87086; 87181; 96372; 99283; A9270; 81003

== ENCOUNTER 2023-11-05 21:24 | Emergency (ER) | payer MEDICAID ==
[2023-11-05 23:45] LABS: BASOPHILS % (AUTO) 0.2 %; EOSINOPHILS % (AUTO) 0.1 %; HCT - HEMATOCRIT 30.7 % (37.0-47.0); HGB - HEMOGLOBIN 9.1 g/dL (12.0-16.0); LYMPHOCYTES # (AUTO) 2.4 10^3/uL (1.5-3.5); MEAN CORPUSCULAR HGB CONC 29.6 g/dL (32.0-36.0); MEAN CORPUSCULAR VOLUME 74.3 fL (81.0-99.0); MEAN PLATELET VOLUME 8.9 fL (7.9-10.8); MONOCYTES # (AUTO) 1.1 10^3/uL (0.0-1.0); NEUTROPHILS % (AUTO) 71.4 %; PLT - PLATELET COUNT 532 10^3/uL (130-450); RED BLOOD COUNT 4.13 10^6/uL (4.20-5.40); RED CELL DISTRIBUTION WIDTH 17.7 % (12.0-15.0); WHITE BLOOD COUNT 12.6 x10^3/uL (4.8-10.8)
[2023-11-05 23:53] LABS: ALBUMIN 3.5 g/dL (3.2-5.5); BILIRUBIN,TOTAL 0.5 mg/dL (0.2-1.0); CALCIUM 9.2 mg/dL (8.5-10.3); CREATININE 0.6 mg/dL (0.6-1.3); POTASSIUM 4.3 mmol/L (3.5-4.5); TOTAL PROTEIN 7.1 g/dL (6.4-8.9)
--- NOTE | 2023-11-05 23:54 | ED Physician Documentation ---
History of Present Illness - Stated complaint Stated Complaint: CHEST PX - Chief complaint Chief Complaint: Cardiac - Additonal information Additional information: 43-year-old female presents with right-sided chest pain. Right-sided chest pain made worse with deep inspiration x 1 day. Does report had a cold 2 weeks ago. Denies smoking, estrogen containing medications, travel. 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, 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 - Present Medications Home Medications: Ambulatory Orders Medication Instructions Recorded Confirmed Fluoxetine HCl [Prozac] 40 mg PO DAILY 03/31/19 03/29/20 busPIRone [Buspar] 5 mg PO TID PRN 03/31/19 03/29/20 Levothyroxine Sodium [Synthroid] 1 tab PO DAILY 03/29/20 03/29/20 Amox/Clav 875/125 [Augmentin] 1 each PO Q12H #10 tablet 11/05/20 Fluconazole [Diflucan] 1 tablet PO ONCE 1 Days #1 tablet 11/05/20 HYDROcod/ACETAM 5/325 [[place] 5/325] 1 - 2 tablet PO Q6H PRN #14 tablet 11/29/20 Ciprofloxacin HCl [Cipro] 500 mg PO BID #20 tablet 05/13/23 Ferrous Sulfate 325 mg PO DAILY #60 05/13/23 Saccharomyces Boulardii [Florastor] 250 mg PO BIDWM #30 cap 05/13/23 Azithromycin [Zithromax] 0 mg PO DAILY #6 tablet 11/06/23 HYDROcod/ACETAM 5/325 [[place] 5/325] 1 - 2 ea PO Q6H PRN #14 tablet 11/06/23 - Allergies Allergies/Adverse Reactions: Allergies Allergy/AdvReac Type Severity Reaction Status Date / Time ibuprofen [From Motrin] Allergy Respiratory Verified 11/05/23 21:34 - Social History Does the pt smoke?: No Smoking Status: Never smoker Does the pt drink ETOH?: No Does the pt have substance abuse?: No - Immunizations Immunizations are current?: Yes - POLST Patient has POLST: No Results - Vitals Vitals: Vital Signs - 24 hr 11/05/23 11/06/23 11/06/23 21:34 00:50 01:51 Temperature 36.8 C Heart Rate 110 H 85 73 Respiratory 16 18 20 Rate Blood Pressure 150/76 H 135/81 H 124/74 O2 Saturation 100 99 92 11/06/23 02:44 Temperature Heart Rate 73 Respiratory 18 Rate Blood Pressure 117/77 O2 Saturation 98 Oxygen O2 Source Room air - EKG (time done) 2138 EKG releavant findings:: EKG personally interpreted by author of this note. Relevant findings are: Sinus rhythm with rate 107 bpm. Normal axis. Normal MI, QRS, QTc intervals. No ST segment elevations or T wave inversions. - Labs Labs: Laboratory Tests 11/05/23 11/05/23 11/06/23 23:34 23:34 00:20 WBC 12.6 H RBC 4.13 L Hgb 9.1 L Hct 30.7 L MCV 74.3 L MCH 22.0 L MCHC 29.6 L RDW 17.7 H Plt Count 532 H MPV 8.9 Neut # (Auto) 9.0 H Lymph # (Auto) 2.4 [place] # (Auto) 1.1 H Eos # (Auto) 0.0 Baso # (Auto) 0.0 Absolute Nucleated RBC 0.00 Nucleated RBC % 0.0 D-Dimer > 1050.0 H Sodium 135 Potassium 4.3 Chloride 103 Carbon Dioxide 25 Anion Gap 7.0 BUN 20 Creatinine 0.6 Estimated GFR (MDRD) 109 Glucose 101 Calcium 9.2 Total Bilirubin 0.5 AST 20 ALT 23 Alkaline Phosphatase 68 Troponin I High Sens 2.6 Total Protein 7.1 Albumin 3.5 Globulin 3.6 Albumin/Globulin Ratio 1.0 Lipase 16 PD Medical Decision Making - ED course Complexity details: reviewed results, d/w patient ED course: Patient with right upper lobe pneumonia. Afebrile, respiratory well. Started antibiotics. Low risk pneumonia severity index scoring. Will have her follow- up with primary care. Departure - Departure Disposition: 01 Home, Self Care Clinical Impression: PNA (pneumonia) Qualifiers: Pneumonia type: due to unspecified organism Laterality: right Lung location: upper lobe of lung Qualified Code(s): J18.9 - Pneumonia, unspecified organism Instructions: ED Pneumonia Adult Prescriptions: HYDROcod/ACETAM 5/325 [[place] 5/325] 1 - 2 ea PO Q6H PRN #14 tablet PRN Reason: Pain Azithromycin [Zithromax] 0 mg PO DAILY #6 tablet Comments: Thank you for allowing us to care for you today at [facility]. Today in the emergency department you are diagnosed with right upper lobe pneumonia. I written a prescription for some antibiotics. Please begin these tomorrow. Have also written some medication for pain control. Please drink plenty fluids and get plenty of rest. Please follow-up with your primary care doctor. If it anytime you have new or worsening symptoms please not hesitate to return. Forms: PCP List Discharge Date/Time: 11/06/23 03:36
[2023-11-06] LABS: TROPONIN I HIGH SENSITIVITY 2.6 ng/L (2.3-14.8)
--- NOTE | 2023-11-06 00:08 | XRAY Report ---
PROCEDURE: Chest 1V INDICATIONS: Chest Pain TECHNIQUE: One view of the chest was acquired. COMPARISON: Chest x-ray 11/29/2020 FINDINGS: Surgical changes and devices: None. Lungs and pleura: Mild appearance of perihilar opacities. Mediastinum: Mediastinal contours appear normal. Heart size is normal. Bones and chest wall: No suspicious bony lesions. Overlying soft tissues appear unremarkable. IMPRESSION: Mild increased perihilar opacities. This could be related to infection or inflammation. Reviewed by: Yaritza Judd MD on 11/06/2023 12:06 AM PDT Approved by: Yaritza Judd MD on 11/06/2023 12:06 AM PDT Station ID: [id number]
[2023-11-06] MEDS: MORPHINE 2 MG/ML CARPUJECT IVP STA (00:37)
[2023-11-06] MEDS: ONDANSETRON 4 MG/2 ML VIAL IVP STA (00:38)
[2023-11-06] MEDS: SODIUM CHLORIDE 0.9% 1,000 ML IV STA (00:38)
[2023-11-06] MEDS ORDERED: iohexoL-300 100 ML VIAL ONE (01:41)
[2023-11-06] MEDS: iohexoL-300 100 ML VIAL IVP ONE (02:12)
[2023-11-06 02:48] VITALS: BP 117/77; O2SAT 98
[2023-11-06] MEDS: cefTRIAXone 1 GM VIAL IVP STA (03:17)
[2023-11-06] MEDS: AZITHROMYCIN 250 MG TABLET PO STA (03:17)
--- NOTE | 2023-11-06 09:25 | CT Report ---
PROCEDURE: Angio Chest INDICATIONS: CP, elevated d dimer CONTRAST: Omni 300, 80mls TECHNIQUE: After the administration of intravenous contrast, 2 mm axial images were acquired from the pulmonary apices to the posterior costophrenic angles during the arterial phase. In addition, 1 mm lung kernel and 5 mm soft tissue kernel reconstructions were performed. 3-dimensional coronal oblique maximum int ensity projection (MIP) reformats, 8 mm axial MIP, and 5 mm coronal and sagittal MPR reformats were t hen performed through the thorax. For radiation dose reduction, the following was used: automated exp osure control, adjustment of mA and/or kV according to patient size. COMPARISON: 11/05/2023, 12/29/2020. FINDINGS: Image quality: Excellent. Large vessels: No filling defects within the opacified pulmonary arteries, accounting for motion and contrast timing. No evidence of acute aortic syndrome or aortic aneurysm. Lungs and pleura: Anterior right upper lobe consolidation and mild right upper lobe consolidation. No pleural effusions. No pneumothorax. No suspicious pulmonary nodules which require follow up. Mediastinum: Heart size is normal. No pericardial effusion. No large vessel abnormality. No mediastin al adenopathy by size criteria. Chest wall and lower neck: Thyroid is unremarkable. No axillary or supraclavicular adenopathy by size . Bones: No aggressive osseous abnormality. Upper Abdomen: Unremarkable. IMPRESSION: No pulmonary embolus. Anterior right upper lobe consolidation and mild right middle lobe consolidation. Findings are consis tent with pneumonia. Recommend follow-up x-ray in 1-2 months to ensure resolution. Agree with preliminary report. Reviewed by: Virgil Costa MD on 11/06/2023 8:24 AM GUCCI Approved by: Virgil Costa MD on 11/06/2023 8:24 AM PRIRINA Station ID: [id number]
== END 2023-11-06 03:36 | disposition home or self-care (01) ==
LOC: ED 21:24
DX: J18.9 Pneumonia, unspecified organism (principal)
CPT/HCPCS: 36415; 71045; 71275; 80053; 83690; 84484; 85025; 85379; 93005; 96374; 96375; 99284; A9270; Q9967